=== PATIENT | female | born 1995 | race Caucasian/White ===

== ENCOUNTER 2017-06-06 09:11 | Emergency (ER) | payer SELFPAY ==
[~2017-06-06] VITALS: Ht 175.3 cm; Wt 90.7 kg
[2017-06-06] MEDS ORDERED: haldol PO (09:30)
[2017-06-06] MEDS ORDERED: BUPR1FIL3 SL (09:30)
[2017-06-06] MEDS ORDERED: PARO25TA16 PO (09:30)
--- NOTE | 2017-06-06 09:42 | NUR ---
Patient discharged to home in stable conditon. Written and verbal after care instructions given. Patient verbalizes understanding of instructions.
== END 2017-06-06 09:52 | disposition home or self-care (01) ==
LOC: ER 09:11
DX: R60.0 Localized edema (principal)
CPT/HCPCS: 99283; A4663